=== PATIENT | male | born 1995 ===

== ENCOUNTER 2018-05-31 09:54 | Outpatient (CLI) | payer OTHER ==
[~2018-05-31] VITALS: Ht 190.5 cm; Wt 78.5 kg
[~2018-05-31 09:54] MED LIST: LEVAQUIN-D5W5 MG/M2 IV; MOTRIN800 MG PO; PROTONIX40 MG; ZANTAC150 M3
[2018-05-31] MEDS ORDERED: ZANTAC300 MG PO (13:25)
== END 2018-05-31 10:15 | disposition home or self-care (01) ==
LOC: OFIC 805 09:54
DX: J31.0 Chronic rhinitis (principal); J37.0 Chronic laryngitis; J35.1 Hypertrophy of tonsils